=== PATIENT | male | born 1945 | race African-American/Black ===

== ENCOUNTER 2021-06-19 16:54 | Emergency (ER) | payer MEDICARE ==
[2021-06-19] MEDS ORDERED: Nitroglycerin 2% Ointment 1 INCH/1 GM Packet ONE (19:07)
[2021-06-19] MEDS ORDERED: Ketorolac Tromethamine 30 MG/ML VIAL ONE (19:23)
[2021-06-19 19:35] LABS: CKMB 2.7 ng/mL (0-6.6)
[2021-06-19 19:50] LABS: SARS-CoV-2 NAA Rapid Test Not Detected (NotDetected)
[2021-06-19 22:13] LABS: #Eosinphils 0.2 10x3/uL (0.0-0.5); #Monocytes 0.6 10x3/uL (0.0-1.1); #Neutrophils 6.1 10x3/uL (1.5-8.4); %Basophils 0.5 % (0.0-2.0); %Eosinophils 1.9 % (0.0-6.0); %Lymphocytes 18.6 % (18.0-47.0); %Monocytes 6.9 % (0.0-10.0); %Neutrophils 71.9 % (40.0-75.0); Hemoglobin 14.3 g/dL (13.5-17.5); Mean Corpuscular HGB CONC 34.5 g/dL (32.0-36.0); Mean Corpuscular Hemoglobin 29.7 pg (27.0-33.0); Mean Corpuscular Volume 86.1 fl (81.2-95.1); Mean Platelet Volume 10.5 fl (7.4-10.4); Platelet Count 231 10x3/uL (150-450); RBC Distribution Width 13.9 % (11.5-14.5); Red Blood Cell (RBC) Count 4.81 10x6/uL (4.32-5.72); White Blood Cell (WBC) Count 8.5 10x3/uL (3.5-10.5)
[2021-06-19 22:19] LABS: ALT (SGPT) 23 U/L (8-55); AST (SGOT) 28 U/L (5-34); Albumin 3.3 g/dL (3.4-4.8); Alkaline Phosphatase 66 U/L (40-110); Anion Gap 13 mmol/L (10-20); BUN (Urea Nitrogen) 16 mg/dL (8.4-25.7); Bilirubin, Total 0.6 mg/dL (0.2-1.2); Calc. Creatinine Clearance 0 mL/min (70-130); Calcium 9.4 mg/dL (7.8-10.44); Carbon Dioxide 23 mmol/L (23-31); Chloride 107 mmol/L (98-107); Globulin 2.7 g/dL (2.4-3.5); Glucose 110 mg/dL (83-110); Lipase 46 U/L (8-78); Magnesium 1.9 mg/dL (1.6-2.6); Potassium 3.7 mmol/L (3.5-5.1); Sodium 139 mmol/L (136-145)
[2021-06-19 22:45] LABS: CKMB 2.5 ng/mL (0-6.6)
[2021-06-20] MEDS ORDERED: Enoxaparin Sodium 60 MG/0.6 ML SYRINGE SC SCH (01:30)
[2021-06-20] MEDS ORDERED: Nitroglycerin 0.4 MG TAB (25 Tab Bottle) SL PRN (01:56)
[2021-06-20] MEDS ORDERED: Acetaminophen 325 MG TAB PO PRN (01:56)
[2021-06-20] MEDS ORDERED: hydrALAZINE 20 MG/ML VIAL SLOW IVP PRN ×2 (01:56→02:05)
[2021-06-20] MEDS ORDERED: Ondansetron PF 4 MG/2 ML Vial IVP PRN (01:56)
[2021-06-20] MEDS ORDERED: Acetaminophen 650 MG Suppository PR PRN (01:56)
[2021-06-20] MEDS ORDERED: Ondansetron ODT 4 MG TAB PO PRN (01:56)
[2021-06-20] MEDS ORDERED: Clopidogrel Bisulfate 300 MG TAB PO SCH (02:30)
[2021-06-20] MEDS ORDERED: Enoxaparin Sodium 40 MG/0.4 ML SYRINGE SC SCH (09:00)
[2021-06-20] MEDS ORDERED: Atorvastatin Calcium 40 MG TAB PO SCH (21:00)
== END 2021-06-19 23:25 | disposition short-term general hospital (02) ==
LOC: CSHERS 16:54
DX: I21.3 ST elevation (STEMI) myocardial infarction of unspecified site (principal); I63.9 Cerebral infarction, unspecified; Z20.822 Contact with and (suspected) exposure to COVID-19; I10 Essential (primary) hypertension
CPT/HCPCS: 80053; 82553; 83605; 83690; 83735; 84484 ×2; 85025; 93005; 96374; 99285; U0002; 36415; J1885